=== PATIENT | male | born 1965 | race Hispanic/Latino ===

== ENCOUNTER 2021-05-11 10:54 | Emergency (ER) | payer OTHER ==
[~2021-05-11] VITALS: Ht 167.6 cm; Wt 99.8 kg
[2021-05-11 11:27] LABS: BASOPHILS % (AUTO) 0.3 % (0.0-5.0); EOSINOPHILS % (AUTO) 1.2 % (0.0-8.0); HEMATOCRIT 40.7 % (42-54); LYMPHOCYTES % (AUTO) 16.1 % (21.0-51.0); MEAN CORPUSCULAR HEMOGLOBIN 30.8 pg (27.0-33.0); MEAN CORPUSCULAR HGB CONC 33.9 g/dL (32.0-36.0); MEAN CORPUSCULAR VOLUME 90.8 fL (79-99); MONOCYTES % (AUTO) 4.3 % (3.0-13.0); NEUTROPHILS % (AUTO) 77.9 % (40.0-77.0); PLATELET COUNT (AUTO) 235 K/uL (130-400); RED BLOOD CELL COUNT(AUTO) 4.48 MIL/uL (4.50-6.20); RED CELL DISTRIBUTION WIDTH 12.6 % (11.0-15.5); WHITE BLOOD COUNT (AUTO) 5.9 K/uL (4.8-10.8)
[2021-05-11] MEDS ORDERED: ONDANSETRON 4MG INJ IVP SCH (11:30)
[2021-05-11] MEDS ORDERED: UNASYN 3GM VIAL IV ONE (11:30)
[2021-05-11] MEDS ORDERED: AMP/SULBAC 3GM+NS 100ML 100 ML IV SCH (11:30)
[2021-05-11] MEDS ORDERED: MORPHINE 2 MG SYG IVP SCH (11:30)
[2021-05-11 11:41] LABS: CREATININE 0.8 mg/dL (0.5-1.5); POTASSIUM 3.8 mmol/L (3.5-5.1)
[2021-05-11 11:44] LABS: INR 1.02 (0.85-1.15); PROTHROMBIN TIME 11.1 SEC (9.6-11.6)
[2021-05-11 11:46] LABS: BILIRUBIN,TOTAL 0.4 mg/dL (0.2-1.0); TOTAL PROTEIN, SERUM 7.5 g/dL (6.0-8.3)
[2021-05-11] MEDS ORDERED: ACET1TAB25 PO (13:41)
[2021-05-11] MEDS ORDERED: AMOX1TAB16 PO (13:41)
[2021-05-11 14:15] VITALS: BP 162/90
== END 2021-05-11 14:19 | disposition home or self-care (01) ==
LOC: EDH 10:54
DX: S02.2XXA Fracture of nasal bones, initial encounter for closed fracture (principal); I10 Essential (primary) hypertension; Z79.899 Other long term (current) drug therapy; W22.8XXA Striking against or struck by other objects, initial encounter; Y93.89 Activity, other specified; Y92.89 Other specified places as the place of occurrence of the external cause; Y99.8 Other external cause status
CPT/HCPCS: 36415; 70450; 70486; 80053; 85025; 85610; 96365; 96375; 99284; J0295; J2405